=== PATIENT | male | born 1955 | race Caucasian/White ===

== ENCOUNTER 2016-11-20 14:58 | Observation (INO) | payer OTHER ==
[~2016-11-20] VITALS: Ht 188 cm; Wt 124.2 kg
[~2016-11-20 14:58] MED LIST: ASPI325T32 PO; CLOP75TA3 PO; FLUT16SP NS; FLUT9.9S NS; GLBR5T PO; HYDR25TA4 PO; LORA10CA PO; LOSA100T29 PO; LOSA100T3 PO; LOVA40TA PO; MELO7.5T13 PO; METF1000 PO; METO-274 PO; METO100T3 PO; METR500T19 PO; NITR0.4T SL; OMPR20CCR PO; WARF5TAB7 PO
--- NOTE | 2016-11-20 15:06 | ED.REPORT ---
HPI-Chest Pain 40 and Over Date of Service Nov 20, 2016 ED Provider: Óscar Groves MD The patient is a 61 year old male with history of coronary artery disease s/p left circumflex stent, atrial fibrillation on Xarelto, hypertension, diabetes mellitus, hyperlipidemia, obstructive sleep apnea, and vascular disease who was sent to the emergency department by his office support associate Dr. Branham. The patient has experienced chest tightness and shortness of breath over the last week. His symptoms became much worse today. His symptoms are significantly exacerbated with exertion. He has also experienced lower extremity swelling and weight gain. This is similar to when he previously required cardiac catheterization and stenting. He was recently sick with a cough and cold like symptoms. He denies recent surgery or prolonged immobilization. He denies history of blood clots. Nursing Notes Stated Complaint: SOB Nursing Notes Reviewed: Yes Allergies: Coded Allergies: amoxicillin (Verified Allergy, Severe, severe rash, itching, 11/20/16) Scheduled Aspirin (Aspirin) 81 Mg Tablet 81 MG PO QAM Cetirizine HCl (All Day Allergy) 10 Mg Tab.chew 10 MG PO DAILY Fluticasone Propionate (Fluticasone Propionate Nasal) 16 Gm [place].susp 1 SPRAY NS BID Gabapentin (Gabapentin) 600 Mg Tablet 600 MG PO HS Glyburide (Glyburide) 5 Mg Tab 10 MG PO BIDAC Hydrochlorothiazide (Hydrochlorothiazide) 25 Mg Tablet 25 MG PO DAILY Latanoprost (Latanoprost) 2.5 Ml Drops 1 DROP BOTH_EYES HS Losartan Potassium (Losartan Potassium) 100 Mg Tablet 100 MG PO QAM Lovastatin (Lovastatin) 40 Mg Tablet 40 MG PO HS Metformin (Glucophage) 1,000 Mg Tablet 1,000 MG PO BID Metoprolol Succinate ER (Metoprolol Succinate ER) 100 Mg Tab.er.24h 200 MG PO QAM NPH, Human Insulin Isophane (Novolin-N U100 Insulin Vial) 100 Unit/1 Ml Vial 40 UNITS SUBQ QAM NPH, Human Insulin Isophane (Novolin-N U100 Insulin Vial) 100 Unit/1 Ml Vial 20 UNIT SUBQ QPM Pantoprazole DR (Pantoprazole DR) 40 Mg Tablet.dr 40 MG PO DAILY Rivaroxaban (Xarelto) 20 Mg Tablet 20 MG PO QAM Scheduled PRN Nitroglycerin SL (Nitrostat) 0.4 Mg Tablet 0.4 MG SL Q5MIN PRN PRN For Chest Pain General Time Seen by MD: 15:05 Chief Complaint Chest pain, Shortness of breath Hx Obtained From: Patient, Spouse Arrived By: Walk-in Sudden in Onset?: No Onset Occurred: 1 week ago Symptom Duration: Waxes and wanes Location: : Substernal Quality: Painful, Pressure Radiation: : Does not radiate Migration/Movement: Reports: None Severity: Current: Moderate Severity: Maximum: Severe Recent Healthcare: No recent hospitalization, Recent doctor visit Similar Sx Previous: Yes Past Medical History 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 Physical Exam Initial Vital Signs Vital Signs (First) Date Time Temp Pulse Resp B/P Pulse Ox O2 Delivery O2 Flow Rate FiO2 11/20/16 15:07 36.4 66 16 151/83 97 Room Air Initial VS: Reviewed Head / Eyes: Atraumatic, Normocephalic, PERRL ENT: Mucous membranes moist, Conjunctiva normal, No scleral icterus Neck: Supple, Non-tender, Full range of motion Back: No CVA tenderness Lymphatic: No lymphadenopathy Extremities: Vascular intact, Neuro intact, No swelling, No tenderness Skin: Warm, Dry, No cyanosis Neurologic: Alert, Oriented, Nonfocal Psychiatric: Mood/affect normal, Behavior normal, Normal thought content General/Constitutional: Awake, Alert, Cooperative Respiratory / Chest: Atraumatic, Breath sounds NL, Breath sounds = bilat, No respiratory distress, No rales, No rhonchi, No wheezing, No stridor, No chest tenderness Cardiovascular: Heart rate NL, Regular rhythm, Heart sounds NL, No gallop, No murmurs, No rubs, Peripheral circulation NL, Pulses = bilaterally, No gross BP differential Abdomen: Atraumatic, Soft, Non-tender, McBurney's non-tender, No guarding, No rebound, BS normoactive, No distention, No hernia, No palpable mass Lower Extremity / Pelvis / MS: Neurologic intact, Vascular intact, No edema No calf swelling or tenderness Interpretation & Diagnostics Lab Results Interpretation Result Diagram: 11/20/16 1525 11/20/16 1525 Test 11/20/16 15:25 White Blood Count 6.4th/mm3 (3.8-10.1) Red Blood Count 4.89mil/mm3 (4.40-5.80) Hemoglobin 14.1g/dL (13.8-17.2) Hematocrit 42.2% (41.0-50.0) Mean Corpuscular Volume 86.3fL (81-100) Mean Corpuscular Hemoglobin 28.8pg (27.0-35.0) Mean Corpuscular Hemoglobin Concent 33.4% (32.0-37.0) Red Cell Distribution Width 13.6% (12.3-15.4) Platelet Count 256bil/L (150-400) Neutrophils (%) (Auto) 53.0% (40-74) Lymphocytes (%) (Auto) 34.5% (14-46) Monocytes (%) (Auto) 8.2% (4-12) Eosinophils (%) (Auto) 3.3% (0-5) Basophils (%) (Auto) 0.8% (0-3) Sodium Level 137mEq/L (134-144) Potassium Level 4.3mEq/L (3.5-5.2) Chloride Level 100mEq/L (97-108) Carbon Dioxide Level 22mmol/L (18-29) Blood Urea Nitrogen 16mg/dL (8-27) Creatinine 0.99mg/dL (0.76-1.27) Estimat Glomerular Filtration Rate 81mL/min (>59) Glucose Level 148mg/dL (60-99) Calcium Level 9.9mg/dL (8.5-10.1) Magnesium Level 1.6mg/dL (1.6-2.6) Total Bilirubin 0.8mg/dL (0.0-1.2) Aspartate Amino Transf (AST/SGOT) 20U/L (0-50) Alanine Aminotransferase (ALT/SGPT) 20U/L (0-44) Alkaline Phosphatase 79U/L (25-160) Troponin T < 0.010ug/L (0.0-0.011) Total Protein 7.6g/dL (6.4-8.4) Albumin 4.3g/dL (3.4-5.0) Hold [place] Top Tube Received (Received) ECG Interpretation ECG Interpretation: Atrial fibrillation with a rate of 67 bpm Normal axis Normal intervals No acute ST segment changes No acute T wave abnormalities When compared to prior EKG taken on 03/23/2016 there are no acute changes Time: 15:17 Interpreted by: ED physician X-Ray Chest Interpretation Chest Xray Interpretation: IMPRESSION: No acute process. Dictated by: Alina Cole M.D. on 11/20/2016 at 15:51 Interpretation / Wet Read by: Interpret - Radiologist Re-Eval/Medical Decision Med Decision/Clinical Course The patient is a 61 year old male with history of coronary artery disease s/p left circumflex stent, atrial fibrillation on Xarelto, hypertension, diabetes mellitus, hyperlipidemia, obstructive sleep apnea, and vascular disease who was sent to the emergency department by his office support associate Dr. Branham. The patient has experienced chest tightness and shortness of breath over the last week. His symptoms became much worse today. His symptoms are significantly exacerbated with exertion. Emergency department the patient is afebrile stable vital signs and examination as above. We administered 324 mg of aspirin. His chest pain was 100% resolved with sublingual nitroglycerin. CXR: Obtained, reviewed and interpreted by myself shows no evidence of infiltrates, effusions or pneumothorax. Cardiac and mediastinal silhouette normal. No bony or soft tissue abnormalities. EKG was obtained and interpreted by myself as documented above. CBC and CMP were unremarkable. Initial troponin was negative. Presentation and history concerning for cardiac etiology of chest pain. At this time, however, EKG demonstrates no acute ischemic changes and initial troponin is negative. Presentation and workup thus far was discussed with Dr. Barnham who recommended admission to telemetry unit for stress test in the morning. Patient made comfortable and in no apparent distress. Discussed with admitting hospitalist and transferred in stable condition. Source of Hx: Old records, Private physician Time of Eval: 16:15 Re-Evaluation/Progress Note: The patient is aware of plan for admission. Consultation #1: Referral / Consult Name: Emiliano Branham MD Consulted With: Cardiology Requested Call at: 16:18 Broodmare Barn Groom: Will see patient, Agrees with eval, Agrees with plan Consultation #2: Referral / Consult Name: Lin Conte MD Consulted With: Hospitalist Call Returned at: 16:54 Broodmare Barn Groom: Will see patient, Agrees with eval, Agrees with plan, Accepts admit Counseled Regarding: Diagnosis, Lab results, Need for admission Discharge & Departure Primary Impression: Chest pain Chest pain type: unspecified Qualified Code: R07.9 - Chest pain, unspecified Additional Impressions: CAD (coronary artery disease) Coronary Disease-Associated Artery/Lesion type: unspecified vessel or lesion type [place] vs. transplanted heart: unspecified whether [place] or transplanted heart Associated angina: angina presence unspecified Qualified Code: I25.10 - Atherosclerotic heart disease of [place] coronary artery without angina pectoris Presence of stent in left circumflex coronary artery Dyspnea on exertion Disposition: ADMITTED TO HOSPITAL Discharge Condition All VS Reviewed: Yes Condition: Stable Referrals: Fahad Escobedo MD (PCP) Emiliano Branham MD Scribe Attestation Portions of this note were transcribed by Myranda Fajardo. IDr. Groves personally performed the history, physical exam and medical decision-making; I reviewed and confirmed the accuracy of the information in the transcribed note. Signed by: Emeli Yu, 11/20/2016 at 1700. copies to: Emiliano Branham MD; Fahad Escboedo MD, Beck O MD Nov 20, 2016 15:06 Myranda Fajardo Nov 20, 2016 15:14 Emiliano Branham MD Attestation Portions of this note were transcribed by Myranda Fajardo. Dr. Germain Vasquez personally performed the history, physical exam and medical decision-making; I reviewed and confirmed the accuracy of the information in the transcribed note. Signed by: Emeli Yu, 11/20/2016 at 1700. copies to: Emiliano Branham MD; Fahad Escobedo MD, Beck O MD Nov 20, 2016 15:06 Myranda Fajardo Nov 20, 2016 15:14
[2016-11-20 15:07] VITALS: BP 151/83; PULSE 66; RESP 16; O2SAT 97
[2016-11-20] MEDS ORDERED: Ondansetron 2 mg/mL 2 mL Inj IVPUSH PRN ×2 (15:15→18:20)
[2016-11-20] MEDS ORDERED: Alum-Mag Hydrox-Simeth 30 mL Suspension PO PRN ×2 (15:15→18:20)
[2016-11-20 15:36] LABS: BASOPHILS % (AUTO) 0.8 % (0-3); EOSINOPHILS % (AUTO) 3.3 % (0-5); MONOCYTES % (AUTO) 8.2 % (4-12); Mean Corpuscular Hemoglobin 28.8 pg (27.0-35.0); Mean Corpuscular Volume 86.3 fL (81-100); Platelet Count 256 bil/L (150-400)
--- NOTE | 2016-11-20 15:52 | DRSVH ---
PROCEDURE: X-RAY CHEST ONE VIEW, PORTABLE ([id number]) INDICATIONS: chest pain TECHNIQUE: One view of the chest was acquired. COMPARISON: [facility], CR, CHEST 1VW POST PICC/TUBE [facility], 07/01/2015, 15:17. FINDINGS: Surgical changes and devices: None. Lungs and pleura: No pleural effusions or pneumothorax. Lungs are clear. Mediastinum: Mediastinal contours appear normal. Heart size is normal. Bones and chest wall: No suspicious bony lesions. Overlying soft tissues appear unremarkable. IMPRESSION: No acute process. Dictated by: Alina Cole M.D. on 11/20/2016 at 15:51 Approved by: Alina Cole M.D. on 11/20/2016 at 15:51
[2016-11-20 15:57] LABS: TROPONIN T < 0.010 ug/L (0.0-0.011)
[2016-11-20] MEDS ORDERED: METO-274 PO (16:03)
[2016-11-20] MEDS ORDERED: CETI10TA27 PO (16:03)
[2016-11-20] MEDS ORDERED: FLUT16SP NS (16:03)
[2016-11-20] MEDS ORDERED: ASPI-973 PO (16:03)
[2016-11-20] MEDS ORDERED: GABA600T2 PO (16:03)
[2016-11-20] MEDS ORDERED: PANT40TA3 PO (16:05)
[2016-11-20] MEDS ORDERED: NPH,100V10 SUBQ ×2 (16:05)
[2016-11-20] MEDS ORDERED: RIVA10TA PO (16:05)
[2016-11-20 16:08] LABS: Magnesium 1.6 mg/dL (1.6-2.6)
[2016-11-20] MEDS ORDERED: LATA2.5D6 BOTH_EYES (16:10)
[2016-11-20] MEDS ORDERED: RIVA20TA PO (16:10)
[2016-11-20] MEDS ORDERED: METF1000 PO (17:05)
[2016-11-20 17:19] VITALS: BP 16/84; PULSE 74; RESP 20; O2SAT 98
[2016-11-20] MEDS ORDERED: 0.9% Sodium Chloride 1,000 ML IV SCH ×2 (18:13→18:16)
[2016-11-20] MEDS ORDERED: Atropine 1 mg/10 mL (Code) Syringe IVPUSH PRN (18:20)
[2016-11-20] MEDS ORDERED: Senna-Docusate 8.6-50 mg Tablet PO PRN (18:20)
[2016-11-20] MEDS ORDERED: Polyethylene Glycol (PEG) 17 Gm Powder PO PRN (18:20)
[2016-11-20 18:24] VITALS: PULSE 67
[2016-11-20 18:25] VITALS: BP 159/94; PULSE 66; RESP 20; O2SAT 95
[2016-11-20] MEDS ORDERED: Glucose 40% Oral Gel 15 Gm Tube PO PRN (18:30)
--- NOTE | 2016-11-20 18:34 | NUR ---
ADMIT Patient arrived on floor at 1815, AAOx3, denies CP, pressure. Tele is currently a-fib 70s per tech without ectopy. Oriented to room, MPC, call light and hospital policy. Med rec completed in ED by admit RN. Dr Branham at bedside to assess patient and enter orders. Bed low and locked, call light in reach, care and frequent rounding ongoing.
[2016-11-20 18:43] LABS: Creatine Kinase 144 U/L (21-232)
--- NOTE | 2016-11-20 19:07 | PCM.HPMED ---
Subjective Date of Service Nov 20, 2016 Primary Provider: Admitting Physician: Lin Conte MD Primary Care Physician: Fahad Escobedo MD Attending Physician: Lin Conte MD Chief Complaint: Chest pressure and shortness of breath 1 week HISTORY was OBTAINED FROM PATIENT / [employer] NOT[employer] History of present illness 61-year-old male, today sent by wood scrap handler/acosta to ER for stress study, hx of L Cx stent, due to 1 week hx of angina, worst today SOB/chest pressure worse w/ exertion, associated lower extremity swelling which is not new per patient. wt gain is attributed to recent vacationing and eating more. no orthopnea. compliant w/ medications. Patient has never nitroglycerine at home, since stent. Per wood scrap handler noted on 09/10/16 the patient has had improved MVR-mild, improved EF of 55%, and inf lat hypokinesis 09/15/2016 per echo, distant lateral SC hx w/ known diffuse 3bv disease OM2/LCx/RCA, RVSP 30-40s, LDL 94 In ER, chest pressure and SOB relieved w/ nitroglycerin, s/p [id number] also Review of Systems - none of the following - F/C/sick contact / wt change/ PADILLA / lightheaded / dizziness / sob / cough / cp / acid reflux / n/v/diarrhea / bleeding/bruising / leg swelling / change in voiding / yeast infections / rash ambulates resolved recent sinusitis symptoms after antibiotic course, acid reflux controlled w/ home PPI, trace edema is not worse from baseline, left hip pain - pending ortho repair social never smoker medications Aspirin (Aspirin) 81 Mg Tablet 81 MG PO QAM Cetirizine HCl (All Day Allergy) 10 Mg Tab.chew 10 MG PO DAILY Fluticasone Propionate (Fluticasone Propionate Nasal) 16 Gm [place].susp 1 SPRAY NS BID Gabapentin (Gabapentin) 600 Mg Tablet 600 MG PO HS Glyburide (Glyburide) 5 Mg Tab 10 MG PO BIDAC Hydrochlorothiazide (Hydrochlorothiazide) 25 Mg Tablet 25 MG PO DAILY Latanoprost (Latanoprost) 2.5 Ml Drops 1 DROP BOTH_EYES HS Losartan Potassium (Losartan Potassium) 100 Mg Tablet 100 MG PO QAM Lovastatin (Lovastatin) 40 Mg Tablet 40 MG PO HS Metformin (Glucophage) 1,000 Mg Tablet 1,000 MG PO BID Metoprolol Succinate ER (Metoprolol Succinate ER) 100 Mg Tab.er.24h 200 MG PO QAM NPH, Human Insulin Isophane (Novolin-N U100 Insulin Vial) 100 Unit/1 Ml Vial 40 UNITS SUBQ QAM NPH, Human Insulin Isophane (Novolin-N U100 Insulin Vial) 100 Unit/1 Ml Vial 20 UNIT SUBQ QPM Pantoprazole DR (Pantoprazole DR) 40 Mg Tablet.dr 40 MG PO DAILY Rivaroxaban (Xarelto) 20 Mg Tablet 20 MG PO QAM Scheduled PRN Nitroglycerin SL (Nitrostat) 0.4 Mg Tablet 0.4 MG SL Q5MIN PRN PRN For Chest Pain pmhx Coronary artery disease s/p stenting Atrial fibrillation chronic Diabetes mellitus2 insulin and oral medications Hypertension Obstructive sleep apnea Hyperlipidemia chronic dilated right pupil cellulitis Exam on admission room air NAD A and O x 3 mood affect WNL NC/AT no icterus no injected eyes EOMI PERRL /no pharyngeal lesions/ no oral lesions / hearing intact Supple neck CTAB equal chest rise / no accessory muscle use / speaks in full sentences / no rrw RRR S1 S2 / no mrg / 2+ radial pulses Soft nt nd + BS no hepatosplenomegaly trace [place] edema no cyanosis no ecchymosis of lower extremities No rash / no jaundice WILSON CNII-XII grossly intact symmetrical No dysmetria of bilateral upper and lower limbs Strength grossly intact of bilateral upper and lower limbs Sensation grossly symmetrical of bilateral upper and lower limbs symmetrical facies Studies EKG afib, HR63 no ST changes Trop neg x 1 BNP pending LFTnormal Imaging CXR no acute issues A/P Active issues and reason for admission New onset angina since L cx stent, (Left hip - pending repair, never has performed treadmill study), better w/ ER's nitroglycerin --nuc med pharm and echo pending, serial trop --resume home metoprolol HCTZ losartan statin --morphine asa nitro prn Chronic issues known prior to admission, present on admission Coronary artery disease s/p stenting Atrial fibrillation chronic Diabetes mellitus2 insulin and oral medications Hypertension Obstructive sleep apnea Hyperlipidemia chronic dilated right pupil cellulitis hx -- hold metformin/glyburide/am glargine, continue bedtime glargine/ SSI --resume all other home meds cardiac/DM diet w/ SSI, npo for breakfast DVT prophylaxis - lovenox in addition to his asa and xaralto, dc lovenox if serial trop neg obs status Code full Assessment and plan were discussed with patient Allergies Coded Allergies: amoxicillin (Verified Allergy, Severe, severe rash, itching, 11/20/16) PMH Social History Hx Alcohol Use: No Hx Substance Use: No Smoking Status: Never Smoker Exam Vital Signs Vital Sign - Last Date Time Temp Pulse Resp B/P Pulse Ox O2 Delivery O2 Flow Rate FiO2 11/20/16 18:25 37.1 66 20 159/94 95 Room Air Lab and Diagnostics Result Diagram: 11/20/16 1525 11/20/16 1525 Lin Conte MD Nov 20, 2016 18:29
[2016-11-20] MEDS: Pantoprazole 40 mg ER24 Tablet PO SCH (20:16)
[2016-11-20] MEDS: Fluticasone 0.05% 15 Spray/2 Gm 16 Gm Nasal Spray NASAL SCH (21:28)
--- NOTE | 2016-11-20 21:35 | HP ---
[address] [address] HISTORY AND PHYSICAL PATIENT: MARNI DODD : 1955 MR#: [id number] ADMIT: 11/20/2016 JOB ID: [id number] REASON FOR ADMISSION: Chest pains. HISTORY OF PRESENTING ILLNESS: The patient is a delightful, 61-year-old gentleman, who is very well-known to my practice. He has a history of coronary artery disease, status post PCI to the left circumflex for a lateral wall infarct in 2014, atrial fibrillation, hypertension, hyperlipidemia, and diabetes, obstructive sleep apnea, history of smoking, history of left hip arthritis. Came to emergency department complaining of symptoms of exertional shortness of breath and chest discomfort. Symptoms were more pronounced in last two days. He did not feel very well. He called my office, and my office rightfully advised him to go to [facility] emergency department for further diagnostic evaluation. On arrival, patient reported symptoms of intermittent chest pain. He was admitted and evaluated in the ER. In the ER, his EKG did not show any acute changes. The patient has underlying atrial fibrillation. First set of troponin was negative. Patient had a AZEB score of 2. However,. given his history of previous PCI, ongoing nitroglycerin-responsive chest pain, he was admitted to the hospital for further risk stratification for his symptoms of angina. PAST MEDICAL HISTORY: He has allergies to AMOXICILLIN. CURRENT MEDICATIONS: Include: 1. Aspirin 81 mg daily. 2. Cetirizine 10 mg daily. 3. Fluticasone spray daily. 4. Gabapentin 600 mg daily. 5. Glyburide 10 mg b.i.d. 6. Hydrochlorothiazide 25 mg daily. 7. Latanoprost drops daily. 8. Losartan 100 mg daily. 9. Lovastatin 40 mg daily. 10. Metformin 1000 mg daily. 11. Metoprolol succinate 100 mg daily. 12. Nitroglycerin sublingual p.r.n. for pain. 13. NPH insulin 40 units in the morning and 20 units in the evening. 14. Pantoprazole 40 mg daily. 15. Rivaroxaban 20 mg daily. PERSONAL HISTORY: He has a remote history of smoking in the past. REVIEW OF SYSTEMS: As described in the HPI. In addition, he is reporting symptoms of lower extremity swelling bilaterally, history of left hip pain. Patient is scheduled to undergo procedure approximately in 6-8 weeks. No neurological symptoms. He reported compliance to medications. DIAGNOSTIC WORKUP: He had a coronary angiography performed on August 05, 2015. He had atherectomy to the left circumflex coronary artery. Previous echocardiogram, ejection fraction of 50% to 55%. Lateral wall hypokinesis with mild to moderate mitral regurgitation. His carotid Dopplers demonstrate mild atherosclerotic disease, less than 50% stenosis. Lower extremity Dopplers were nondiagnostic. PHYSICAL EXAMINATION: VITAL SIGNS: Blood pressure is 151/83, pulse of 66, irregularly irregular. He is alert, oriented, not in any distress. He is morbidly obese. Oral dental hygiene is marginal. Neck is soft, supple. I could not visualize JVD very well. S1-S2 sounds distant. I could not appreciate any murmurs. Abdomen is soft, benign, nontender. Lower extremities: 1+ pedal edema noted. There are some mild erythematous brawny changes noted in the left lower extremity. He has a history of nonhealing ulcer approximately two years ago in 2014. Neurologically, he is grossly intact. 1. Chest pain: The patient is a 61-year-old male who is very well-known to me. Has known history of coronary artery disease, status post PCI to left circumflex. Admitted to the hospital with typical chest pains, exertional chest pain brought on with exertion, relieved with rest. He reported mild chest discomfort in the emergency department and was given nitroglycerin which subsequently resolved. His chest pains. His EKG was unremarkable with no acute changes noted. His cardiac biomarkers were negative. However, given his high-risk history, patient was admitted to the hospital for further risk stratification of symptoms of chest pains. At this time, I will schedule him for a Lexiscan in the morning for risk stratification. 2. Leg edema. Patient has reported history of worsening lower extremity edema. Will perform an echocardiogram to assess for any cardiac causes for his lower extremity edema. 3. Atrial fibrillation. Patient is on metoprolol as well as a rivaroxaban. Patient is tolerating the medication well. No further changes are needed at this time. 4. Blood pressure is mildly elevated. Not at goal given his underlying morbid condition. However, being in the emergency department, I would address his elevated blood pressure later. Certainly, his medications can be further optimized. 5. Hyperlipidemia. I do not have any recent lipid panels on him. PLAN: 1. Resume all home medications. 2. Aspirin now. 3. Repeat troponin levels. 4. EKG if there is any recurrence of chest pains. 5. Please call on-call provider. The conference planning manager provider's number is [phone]. 6. Lexiscan tomorrow morning. 7. Echocardiogram for recent change in cardiopulmonary status and lower extremity edema.
[2016-11-20] MEDS: Insulin LISPRO 300 Unit/3 mL Inj SUBQ SCH (21:47)
[2016-11-20 21:51] VITALS: BP 122/78; PULSE 66; RESP 20; O2SAT 97
[2016-11-20] MEDS: Insulin Human NPH 100 Unit/mL Syringe SUBQ SCH (21:56)
[2016-11-21] VITALS (8 sets, daily range): BP systolic 110–145; BP diastolic 65–89; PULSE 63–83; RESP 18–20; O2SAT 94–97
[2016-11-21] MEDS: Heparin 5,000 Unit/mL Inj SUBQ SCH ×3 (00:30→16:38)
[2016-11-21] MEDS: Sodium Chloride LOK Flush 10 mL Syringe IVFLUSH SCH ×6 (00:30→16:38)
[2016-11-21] MEDS ORDERED: Heparin 5,000 Unit/mL Inj SUBQ SCH (00:30)
[2016-11-21 00:37] LABS: Creatine Kinase 122 U/L (21-232)
--- NOTE | 2016-11-21 04:18 | NUR ---
PREP FOR CARDIAC STRESS TEST Pts last caffeine consumption, 11/20/16, "coffee with breakfast" per pt. Last beta cl taken at home 11/20/16 am, 11/20/16 evening dose held. Last dose of nitro was a dose of 0.4mg SL in ER 11/20/16 @ 1535. No nitropaste placed on pt. Pt has been NPO since MN. Addendum: 11/21/16 at 0422 by DAVID YEE RN At least 2 troponins have been resulted.
[2016-11-21 06:10] LABS: BASOPHILS % (AUTO) 0.6 % (0-3); EOSINOPHILS % (AUTO) 2.9 % (0-5); MONOCYTES % (AUTO) 8.3 % (4-12); Mean Corpuscular Hemoglobin 29.2 pg (27.0-35.0); Mean Corpuscular Volume 86.7 fL (81-100); NEUTROPHILS % (AUTO) 50.5 % (40-74); Platelet Count 223 bil/L (150-400)
[2016-11-21] MEDS: Insulin LISPRO 300 Unit/3 mL Inj SUBQ SCH ×4 (08:00→22:00)
[2016-11-21] MEDS: Fluticasone 0.05% 15 Spray/2 Gm 16 Gm Nasal Spray NASAL SCH ×2 (09:15→21:56)
--- NOTE | 2016-11-21 09:23 | NUR ---
Off unit for stress test Pt off unit for stress test. Spoke with [employer] who stated JOEY archer that Metoprolol given prior to test, dose given. [email or web address] notified that pt off unit. Addendum: 11/21/16 at 1053 by BRISA PETERSEN RN Pt back on unit, [email or web address] notified.
--- NOTE | 2016-11-21 12:08 | DRSVH ---
[facility] [address] [place] [address] Echocardiogram Report Name: MARNI DODD DStudy Allen e: 11/21/2016 Height : 74 in Hospital Exam Location: [facility] Weight : 279 lb Gender: Male BSA: 2 .5 m2 : 1955 Age: 61 yrs BP: 14 5/89 mmHg Reason For Study: Chest pain Ordering Physician: HOSPITALIST [facility] Performed By: Inés Barnett Referring Physician: Dr. Emiliano Branham Interpretation Summary 1. Normal LV size and function. The estimated ejection fraction is 50-55% Regional wall motion abnormalities suggest CAD. 2. Severe left atrial enlargment with intact interatrial septum. 3. Mild mitral regurgitation. 4. No pericardial or pleural effusion. Procedure: A two-dimensional transthoracic echocardiogram with color flow and Doppler was performed. The study quality was technically adequate. There is no prior echocardiogram noted for this patient. The patient was in normal sinus rhythm during the exam. Left Ventricle: The left ventricle is normal in size. There is normal left ventricular wall thickness. The ejection fraction is estimated to be 50-55%. There is basal inferior wall akinesis. There is mid anteroseptal wall hypokinesis. Right Ventricle: The right ventricle is normal in size, thickness and function. Atria: The left atrium is severely dilated. Right atrial size is normal. The interatrial septum is intact with no evidence for an atrial septal defect. Mitral Valve: The mitral valve leaflets appear mildly thickened, but open well. There is mild mitral regurgitation. Aortic Valve: The aortic valve opens well. No aortic regurgitation is present. Tricuspid Valve: The tricuspid valve is normal. No tricuspid regurgitation. Great Vessels: The aortic root is mildly dilated. The ascending aorta is at the upper limits of normal in size. The IVC is dilated (diameter is greater than 2.1 cm) yet it collapses greater than 50% with a sniff. This suggests a right atrial pressure of 8 mm Hg. Pericardium/ Pleura There is no pericardial effusion. There is no pleural effusion. MMode/2D Measurements & Calculations LVIDd: 4.7 cm LA dimension: 4.9 cm RA long axis Ao root diam LVIDs: 3.8 cm FS: 17.5 % LA A2 area: 33.2 cm RA area Aortic Jxn: 3.1 cm IVSd: 1.0 cm LA A4 area: 33.2 cm asc Aorta Diam LVPWd: 0.89 cm LA length (vol) : 26.7 cm RA vol Ao Arch Diam (Prox LA vol: 134.0 ml : 89.7 ml Trans): 3.2 cm LA vol index RA : 35.8 mm/ RVDd major IVC diam: 2.0 cm : 5.3 cm LV bosch. diameter/BSA LV sys. diameter/BSA RVD1 (basal) RVD2 (mid): 3.6 cm (cm/m^2): 1.9 (cm/m^2): 1.5 Doppler Measurements & Calculations Ao V2 max MV E max phill MV E/A: 5.5 MV dec time : 105.6 cm/sec : 95.1 cm/sec Med Peak E' Phill : 0.16 sec Ao max P.5 mmHg MV A max phill Ao mean P.2 mmHg : 17.3 cm/sec E/E' med: 12.9 MV P1/2t Lat Peak E' Phill : 48.8 msec MR ERO: 0.16 cm2 E/E' lat: 8.1 E/e' average: 10.5 MV P1/2t max phill Ao V2 mean MR flow rate : 69.3 cm/sec : 87.0 cm3/sec MVA(P1/2t): 4.5 cm2 Ao V2 VTI: 23.2 cm MR PISA radius : 0.61 cm Electronically signed by: Dr. Emiliano Branham on Reading Physician:11/21/2016 12:07 PM
--- NOTE | 2016-11-21 14:04 | NUR ---
Social Work-screening/readiness for discharge: Data:EMR Reviewed. Pt is a 61 y/o male who was admitted on 11/20/16 for chest pain per H&P. Pt's insurance is [employer] and PCP is Fahad Escobedo MD. EMR reviewed. Pt's readmission score is 2. SW met with pt and Candy at bedside to discuss discharge planning, SW role explained. Pt resides at home with his where he remains independent with ADLs. Pt does not use any DME and drives. Pt has had [facility] in the past and been to [facility]. Pt has no residential care or VA benefits. SW discussed DPOA/advanced directive, pt and confirm they have not completed this and are interested in information. SW provided them with paperwork. Per RN notes, pt has been up independent in his room. Pt and feel like they have enough help at home and decline any SW needs. Pt's to provide transport home at discharge. SW provided phone number and plan on white board in room. No anticipated discharge needs. SW will continue to follow if needs arise. Assessment:Pt who is independent at baseline. Plan:Pt to discharge home when medically stable via POV. No anticipated discharge needs. SW will continue to follow if needs arise. GLORIA Saenz
--- NOTE | 2016-11-21 14:42 | PCM.PNMED ---
Subjective Date of Service Nov 21, 2016 Subjective 61-year-old gentleman with history of coronary artery disease, status post PCI to the left circumflex for a lateral wall infarct in 2014, atrial fibrillation, hypertension, hyperlipidemia, diabetes, obstructive sleep apnea, history of smoking, and history of left hip arthritis. Came to emergency department complaining of symptoms of exertional shortness of breath and chest discomfort more pronounced in last two days. Patient reports doing well overnight This morning he feels well. He has not had any recurrence of chest pain, he is not feeling short of breath. He complains of having a lump in his abdomen and his epigastric and periumbilical areas that has now softened. She had a bowel movement this morning. He does not complain of any dysuria. Exam Vital Signs Vital Sign - Last Date Time Temp Pulse Resp B/P Pulse Ox O2 Delivery O2 Flow Rate FiO2 11/21/16 12:34 36.7 81 20 125/82 95 Room Air Intake and Output 11/20/16 11/20/16 11/21/16 Cumulative From/Thru 14:59 22:59 06:59 11/20/16 15:07 - 11/21/16 06:09 Intake Total 1236 ml 1236 ml Balance 1236 ml 1236 ml Intake Oral 1236 ml 1236 ml # Voids 2 2 Exam General: No acute distress, well-developed, well-nourished, appropriately interactive HEENT: Normocephalic, atraumatic. External ears without defect. Left pupil dilated status post corneal transplant, right pupil round, and reactive to light and accommodation. Anicteric sclerae, moist conjunctivae, and no lid lag. Oropharynx free of erythema and cobble stoning with moist mucosa. Neck: Supple with full range of motion. No lymphadenopathy or thyromegaly. Cardiovascular: Regular rate and rhythm with no murmurs, rubs, or gallops appreciated Pulmonary: Clear to auscultation bilaterally with no crackles, wheezes, or rhonchi. Normal respiratory effort with no use of accessory muscles. Abdomen: Bowel tones present. Soft, nontender, nondistended. No hepatosplenomegaly or masses appreciated. Extremities: No clubbing, cyanosis, edema, or lymphadenopathy appreciated. Skin: Normal temperature, turgor, and texture; no rash, ulcers, or subcutaneous nodules appreciated. Neurological: Cranial nerves grossly intact. Normal muscle strength, tone, and bulk. Limping gait, walks with cane. Psychiatric: Normal mood and affect. Alert and oriented to person, place, and time. Lab and Diagnostics Result Diagram: 11/21/1653511/21/16535 Cardiac Echo Impressions Echocardiogram Report Interpretation Summary 1. Normal LV size and function. The estimated ejection fraction is 50-55% Regional wall motion abnormalities suggest CAD. 2. Severe left atrial enlargment with intact interatrial septum. 3. Mild mitral regurgitation. 4. No pericardial or pleural effusion. Assessment & Plan 61-year-old gentleman with history of coronary artery disease, status post PCI to the left circumflex for a lateral wall infarct in 2014, atrial fibrillation, hypertension, hyperlipidemia, diabetes, obstructive sleep apnea, history of smoking, and history of left hip arthritis. Came to emergency department complaining of symptoms of exertional shortness of breath and chest discomfort more pronounced in last two days. 1. New onset angina since L cardiac stent, present on admission, acute - Pain was better w/ ER's nitroglycerin - Left hip - pending repair, never has performed treadmill study - Nuclear medicine myocardial perfusion scan abnormal, resting images to be acquired in the morning - echo results above - serial troponin all negative - resume home metoprolol, HCTZ, losartan, statin - morphine, ASA, nitro PRN - Dr. Branham of cardiology following Chronic issues known prior to admission, present on admission Coronary artery disease s/p stenting - Continue therapy as above Atrial fibrillation chronic - Continue Xarelto Diabetes mellitus 2 - insulin, hold home glyburide - Hemoglobin A1c 8.4 Hypertension Obstructive sleep apnea Hyperlipidemia chronic dilated left pupil cellulitis hx hold metformin/glyburide/am glargine, continue bedtime glargine/ SSI Acetaminophen for mild pain when necessary. Bowel regimen Senna and MiraLAX PRN. Zofran when necessary for nausea and vomiting. DVT prophylaxis with sub cutaneous heparin Patient is admitted under observation status with expected length of stay less than 2 midnights due to severity of presenting symptoms, risk of adverse event, and complexity of treatment plan. Pain Evaluation: Adequate Pain Control GI Prophylaxis: Not indicated VTE Prophylaxis: Other (Xerelto, ASA) VTE Mechanical Devices: Intermittant Pneumatic CD Resuscitation Status: CPR: Attempt Resuscitation Attending Statement The patient was seen and examined together with Dr. Carrera on 11/21/2016 and I agree with the history, exam and plan as outlined in the note above. copies to: Emiliano Branham MD, Erika R DO Nov 21, 2016 14:42 Joni Rodriguez MD Nov 22, 2016 11:35
--- NOTE | 2016-11-21 18:17 | NUR ---
Activity/plan Pt is able to amb, reports discomfort to L hip and is noticeably limping with activity. Denies offer for PRN analgesic. Pt denies any CP/discomfort. Pt reports that he was told stress test abnormal and plan is to be NPO after MN, no caffeine and he will "be getting pictures in the morning." Will monitor for orders. at bedside. Currently resting comfortably, bed in lowest, locked position and call light in reach.
--- NOTE | 2016-11-21 20:42 | PROG NOTE ---
[address] [address] PROGRESS NOTE PATIENT: MARNI DODD : 1955 MR#: [id number] ADMIT: 11/20/2016 JOB ID: [id number] DATE: SUBJECTIVE: This is hospital day two, after being admitted for risk stratification related to his chest pain. He is resting comfortably. He reports that he is experiencing epigastric discomfort which he interprets as GERD. He notes no chest pain or chest discomfort. PHYSICAL EXAMINATION: Vitals: Blood pressure 125/82, pulse is 81, respirations 20, SpO2 is 95% on room air, temperature is 36.7. Lungs are clear to auscultation. There is no JVD. Abdomen is soft, but distended. There is mild lower extremity edema at the ankles which is consistent with previous physical exams. DIAGNOSTIC DATA: Nuclear perfusion study per Dr. Warren of [facility] shows stress images revealed an inferior lateral perfusion defect, consistent with what we know about his cardiac history. ASSESSMENT AND PLAN: Chest pain with exertional shortness of breath: The patient was admitted yesterday for chest pain with associated shortness of breath with a AZEB score of 2. He is resting comfortably today. He reports that he has no chest pain or chest discomfort, but nuclear perfusion study showed that stress images revealed an inferior lateral perfusion defect. As such, he will have resting images done tomorrow. If those images showed no reversible perfusion defect, we will discharge him tomorrow. Otherwise it is likely that Dr. Branham with take him to the cathead operator.
[2016-11-21] MEDS: Insulin Human NPH 100 Unit/mL Syringe SUBQ SCH (21:00)
[2016-11-21] MEDS: Pantoprazole 40 mg ER24 Tablet PO SCH (21:57)
[2016-11-22] MEDS: Heparin 5,000 Unit/mL Inj SUBQ SCH ×2 (00:30→10:33)
[2016-11-22] MEDS: Sodium Chloride LOK Flush 10 mL Syringe IVFLUSH SCH ×4 (00:30→10:25)
[2016-11-22 00:37] VITALS: BP 124/75; PULSE 66; RESP 20; O2SAT 96
[2016-11-22 05:31] VITALS: BP 128/89; PULSE 73; RESP 20; O2SAT 97
--- NOTE | 2016-11-22 05:56 | NUR ---
PT ACTIVITY Pt has slept intermittently during NOC. Pt has not had any complaints. Pt awaiting 2nd portion of stress test to be performed today. Continue to monitor. Call light in reach. Intentional rounding.
[2016-11-22 06:24] LABS: BASOPHILS % (AUTO) 0.6 % (0-3); EOSINOPHILS % (AUTO) 3.1 % (0-5); MONOCYTES % (AUTO) 9.4 % (4-12); Mean Corpuscular Hemoglobin 29.3 pg (27.0-35.0); Mean Corpuscular Volume 85.7 fL (81-100); NEUTROPHILS % (AUTO) 44.8 % (40-74); Platelet Count 211 bil/L (150-400)
[2016-11-22 06:34] VITALS: PULSE 73
[2016-11-22] MEDS: Insulin LISPRO 300 Unit/3 mL Inj SUBQ SCH ×2 (07:45→12:26)
[2016-11-22 09:25] VITALS: BP 137/91; PULSE 75; RESP 20; O2SAT 96
[2016-11-22] MEDS: Fluticasone 0.05% 15 Spray/2 Gm 16 Gm Nasal Spray NASAL SCH (10:25)
--- NOTE | 2016-11-22 11:44 | DRSVH ---
PROCEDURE: 2 DAY STRESS TEST INDICATIONS: Angina. COMPARISON: None. Radiopharmaceutical: Stress dose 21.5 mCi of technetium 99 tetrofosmin Rest dose 22.1 mCi of technetium 99 tetrofosmin Patient presentation: 61-year-old man with coronary disease status post PCI to the circumflex in 2014 ; hypertension, hyperlipidemia, diabetes, sleep apnea and chronic A. fib comes in with chest discomf ort and negative troponins. FINDINGS: Pharmacologic stress test: Following informed consent Lexisca was infused per protocol. Patient devel oped shortness of breath and lightheadedness. There were no significant ST segment changes. There was one ventricular couplet in late recovery period Raw data: Normal myocardial tracer uptake. Lung heart ratio is grossly normal. Quantitative gated SPECT: Study could not be properly gated due to A. fib Myocardial perfusion imaging: There is a medium sized severe intensity lateral perfusion defect exten ding from the basal inferolateral to mid inferolateral segment, and also involving basal inferior wal l. There is minimal reversibility. SSS 7 SRS 6 SDS 1. IMPRESSION: Abnormal intermediate risk pharmacologic stress test with myocardial perfusion imaging. There is a me dium sized severe intensity lateral perfusion defect consistent with completed infarct. There is mini mal bernie-infarct ischemia. There is no prior stress test available for comparison. Dictated by: Ariana Warren M.D. on 11/22/2016 at 11:37 Approved by: Ariana Warren M.D. on 11/22/2016 at 11:43
--- NOTE | 2016-11-22 12:30 | PCM.DIMED ---
Discharge Instructions Date of Service Nov 22, 2016 Dates of Hospitalization Nov 20, 2016 at 17:07 Discharge Diagnosis Discharge Diagnosis 11/22/2016 Diet Low fat, Low Sodium, Heart Healthy, Diabetic Activity No restrictions Call your provider Fever or Chills, Shortness of breath, Chest pain Patient Instructions Follow-up in: 1 week Mid-level Provider (F9): Titi Voss PA-C Follow-up with Mid-level in: 1 week Titi Voss PA-C Nov 22, 2016 12:30
--- NOTE | 2016-11-22 13:38 | NUR ---
Social Work-discharge: Data:EMR reviewed. Pt is on day 2 of hospitalization for chest pain per H&P. Pt is medically stable for discharge home today. Pt has been up independent in his room. Pt and confirm no discharge needs. No discharge needs identified. All updated and agreeable to plan. Assessment:Pt who is independent at baseline. Plan:Pt to discharge home today via POV. No discharge needs identified. All updated and agreeable to plan. GLORIA Saenz
--- NOTE | 2016-11-22 14:18 | NUR ---
DISCHARGE Patient discharged at 1400, left with who will drive him home. Patient denies pain, shortness of breath, and nausea. Medications and follow up instructions reviewed and patient verbalized understanding. IV catheter removed intact, VSS, and patient departed in wheel chair.
--- NOTE | 2016-11-22 16:56 | PROG NOTE ---
[address] [address] PROGRESS NOTE PATIENT: MARNI DODD : 1955 MR#: [id number] ADMIT: 11/20/2016 JOB ID: [id number] DATE: This is hospital day three, after being admitted for risk stratification related to his chest pain. He is resting comfortably. He reports that he is experiencing symmetric epigastric discomfort as he was yesterday, which he interprets as GERD. He notes that he has no chest pain or chest discomfort. OBJECTIVE: Blood pressure 137/91, pulse is 75 and irregular, respirations are 20. SpO2 is 96% on room air. Lungs are clear bilaterally. Abdomen is distended but soft. There is minimal peripheral edema. DIAGNOSTIC DATA: Nuclear perfusion study interpreted by Dr. Warren of [facility] shows stress images. Revealed an inferolateral perfusion defect with minimal reversibility. This is consistent with what we know about his cardiac history. ASSESSMENT AND PLAN: Chest pain with exertional shortness of breath. The patient was admitted Wednesday for chest pain and associated shortness of breath with a AZEB score of 2. He is resting comfortably today. He reports he has no chest discomfort. Nuclear perfusion study revealed a perfusion defect with minimal reversibility consistent with previous lateral UT. As such, we feel it is safe for the patient to be discharged today on his home medications. He should follow up at [facility] in our clinic in one week.
--- NOTE | 2016-11-24 00:54 | DIS ---
[address] [address] DISCHARGE SUMMARY PATIENT: MARNI DODD : 1955 MR#: [id number] ADMIT: 11/20/2016 JOB ID: [id number] DIS: 11/22/2016 PROCEDURES: 1. A 2D echocardiogram which revealed hypokinesis of the lateral wall of the heart. 2. Nuclear perfusion imaging study which revealed a fixed lateral wall perfusion defect which is consistent with what we know about his medical history. BRIEF HISTORY: The patient is a delightful 61-year-old man with a history of coronary artery disease status post lateral wall IA. He showed up in our office on Sunday, November 20, 2016, for routine office visit after I had increased his beta-cl to bring his heart rate down a couple of weeks ago. The patient reported at that time that he had recently been experiencing dyspnea on exertion, decreased exercise tolerance and episodic chest tightness. Symptoms began about a week prior. He had two events of chest tightness in the past 24 hours. The patient denied orthopnea or PND. No syncope or presyncope. Blood pressure was well controlled in the office that day. EKG revealed AFib at 68 beats per minute, which is consistent with previous EKGs. Otherwise, the revealed no concerning physical findings. His BP and heart rate were stable. This gave him chest pain with a AZEB score of 4, possibly 5. At the time, we did not have his cardiac enzymes evaluated. As such, I advised him to go to the emergency department at [facility], and he was admitted there for risk stratification concerning his chest pain. HOSPITAL COURSE: The patient was admitted to the [facility] for risk stratification concerning his chest pain. The above-mentioned procedures were carried out. No unexpected abnormalities were discovered and his chest pain resolved. As such, he was discharged to our office for further evaluation next week,. On discharge, he was alert and oriented, vitals were stable, and his chest pain had resolved. DISCHARGE MEDICATIONS: 1. Aspirin 81 mg daily. 2. Cetirizine 10 mg daily. 3. Fluticasone one spray twice a day. 4. Gabapentin 600 mg daily. 5. Glyburide 10 mg twice a day. 6. Hydrochlorothiazide 25 mg daily. 7. Latanoprost one drop in both eyes at bedtime. 8. Losartan 100 mg daily. 9. Lovastatin 40 mg daily. 10. Metformin 1000 mg twice a day. 11. Metoprolol succinate 100 mg daily. 12. Nitroglycerin sublingual 0.4 mg as needed every 5 minutes, up to 3, for chest pain. 13. NPH 40 units subcutaneous in the morning and 20 units subcutaneous in the evening. 14. Pantoprazole 40 mg daily. 15. Rivaroxaban 20 mg daily. DISPOSITION AND DISCHARGE INSTRUCTIONS: 1. The patient was discharged to home, placed under the care of his family with the following instructions. Eat a heart healthy, diabetic friendly diet. Call the office if he experiences chest pain, shortness of breath, fever or chills. 2. Follow up in our office in one week and see JOEY Voss.
== END 2016-11-22 14:00 | disposition home or self-care (01) ==
LOC: SED 14:58 → UNDOADMOB 16:41 → MPC 16:41
PROVIDERS: ADMIT Urology; ATTEND Urology
DX: I25.119 Atherosclerotic heart disease of native coronary artery with unspecified angina pectoris (principal); Z95.5 Presence of coronary angioplasty implant and graft; E11.9 Type 2 diabetes mellitus without complications; I48.2 Chronic atrial fibrillation; G47.33 Obstructive sleep apnea (adult) (pediatric); I25.2 Old myocardial infarction; E78.5 Hyperlipidemia, unspecified; Z79.82 Long term (current) use of aspirin; Z79.84 Long term (current) use of oral hypoglycemic drugs; Z79.4 Long term (current) use of insulin; Z87.891 Personal history of nicotine dependence; Z79.01 Long term (current) use of anticoagulants; R06.02 Shortness of breath
CPT/HCPCS: 36415; 71010; 78452; 80048; 80053; 80061; 82550; 82553; 82948; 83036; 83735; 83880; 84443; 84484; 85025; 93005; 93017; 99285; A9502; C8929; G0378; J0280; J1644; J1815; J2785; J7030